=== PATIENT | male | born 1970 | race Caucasian/White ===

== ENCOUNTER 2018-01-06 21:08 | Emergency (ER) | payer OTHER ==
[~2018-01-06] VITALS: Ht 177.8 cm; Wt 91.3 kg
[~2018-01-06 21:08] MED LIST: GLIP-171 PO; NIAC500T8 PO; OXYC5TAB PO; SIMV40TA4 PO
[2018-01-06 21:10] VITALS: Ht 177.8 cm; Wt 91.3 kg
[2018-01-06] MEDS ORDERED: SODIUM CHLORIDE 0.9% 1000ML 1,000 ML IV STA (21:27)
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
[2018-01-06] MEDS ORDERED: LPT40 PO (21:46)
[2018-01-06] MEDS ORDERED: GLIM2TAB2 PO (21:46)
[2018-01-06] MEDS ORDERED: GLC/500 PO ×2 (21:46)
[2018-01-06 22:13] LABS: BASO % 0.1 %; BASO ABS # 0.01 K/uL (0-0.2); EOS % 1.2 %; EOS ABS # 0.12 K/uL (0-0.5); HEMATOCRIT 41.2 % (42-52); IG# 0.03 K/uL (0.00-0.02); LYMPH % 20.2 %; LYMPH ABS # 1.98 K/uL (1.2-3.4); MEAN CELL VOLUME 83.9 fL (80-100); MEAN CORPUSCULAR HEMOGLOBIN 30.5 pg (25-34); MEAN CORPUSCULAR HGB CONC 36.4 g/dl (32-36); MEAN PLATELET VOLUME 10.1 fL (7.4-10.4); MONO ABS # 1.08 K/uL (0.11-0.59); NEUT % 67.2 %; PLATELET COUNT 201 K/uL (130-400); RED CELL DISTRIBUTION WIDTH SD 39.3 fL (36.4-46.3); WHITE BLOOD COUNT 9.82 K/uL (4.8-10.8)
[2018-01-06 22:38] LABS: CALCIUM 8.7 mg/dl (8.5-10.1); CREATININE 1.03 mg/dl (0.60-1.40); POTASSIUM 3.4 mmol/L (3.5-5.1)
[2018-01-06 22:40] LABS: TOTAL PROTEIN 7.7 gm/dl (6.4-8.2)
[2018-01-06 22:55] VITALS: TEMP 37.4
[2018-01-06] MEDS ORDERED: OPTIRAY 320 IV PRN (23:30)
[2018-01-07] MEDS ORDERED: METRONIDAZOLE 250 MG TAB PO STA (00:23)
[2018-01-07] MEDS ORDERED: CIPROFLOXACIN 500 MG TAB PO STA (00:23)
[2018-01-07] MEDS ORDERED: METR-162 PO (00:29)
[2018-01-07] MEDS ORDERED: CIPR-255 PO (00:29)
[2018-01-07 00:42] VITALS: BP 157/103; PULSE 88; O2SAT 96
--- NOTE | 2018-01-07 08:48 | DIAGNOSTIC IMAGING REPORT ---
ABDOMEN AND PELVIS CT WITH IV AND ORAL CONTRAST CT DOSE: 486.64 mGy.cm HISTORY: Acute generalized abdominal pain ABDOMINAL PAIN/GI--?DIVERTICULITIS/mass--GIVE PO AND IV CONTRAST TECHNIQUE: Multiaxial CT images of the abdomen and pelvis were performed following the use of intravenous and oral contrast. A dose lowering technique was utilized adhering to the principles of ALARA. COMPARISON STUDY: CT abdomen and pelvis 04/14/2012. FINDINGS: Mild dependent subsegmental bibasilar atelectasis. There is no pneumatosis or pneumoperitoneum identified. Imaged inferior cardiac chambers are unremarkable. There is diffuse fatty infiltration of the liver. Lobulated lesion with peripheral nodular discontinuous enhancement involves segment 2 of the liver, image 16 series 12 measuring 4.4 x 3.7 cm, previously measuring 3.2 x 2.2 cm on study dated 04/14/2012. No additional hepatic mass lesions or intrahepatic biliary ductal dilation identified. Spleen is enlarged, 16.5 cm. Gallbladder is mildly contracted. Pancreas is unremarkable. No glands are within normal limits. Subcentimeter low attenuating lesions of the left kidney measuring up to 8 mm suggest renal cysts. Ureters, urinary bladder and prostate are unremarkable. Aorta is normal in course and caliber. No bulky adenopathy. There is suggestion of mild nonspecific wall thickening of the distal esophagus. No bowel obstruction. Postoperative changes from prior appendectomy. There is marked wall thickening of the distal ascending colon just proximal to the hepatic flexure with moderate inflammation surrounding a diverticulum on image 249 series 3. No drainable abscess or evidence of perforation. There are multiple small lymph nodes of the right lower quadrant mesentery measuring up to 4 mm. Soft tissues are unremarkable. The bones appear intact. No suspicious lytic or blastic bony lesions. IMPRESSION: 1. Marked wall thickening of the distal ascending colon just proximal to the hepatic flexure with moderate mesenteric inflammatory stranding surrounding a diverticulum suggests acute colonic diverticulitis without evidence of associated abscess or evidence of perforation. Several scattered nonenlarged lymph nodes of the right lower quadrant mesentery are likely reactive. 2. No bowel obstruction. 3. Hepatic steatosis. 4. Lobulated lesion with peripheral nodular discontinuous enhancement involves segment II of the liver measuring 4.4 x 3.7 cm, previously 3.2 x 2.2 cm on study dated 04/14/2012 suggesting a hepatic hemangioma. 5. Mild splenomegaly. 6. Prior appendectomy. Electronically signed by: Giovanni Boles M.D. 01/07/2018 8:47 AM Dictated Date/Time: 01/07/2018 8:38 AM
== END 2018-01-07 00:42 | disposition home or self-care (01) ==
LOC: C.EDB 21:09 → C.EDA 01-07 00:42
DX: K57.92 Diverticulitis of intestine, part unspecified, without perforation or abscess without bleeding (principal); R10.9 Unspecified abdominal pain; E11.9 Type 2 diabetes mellitus without complications; E78.5 Hyperlipidemia, unspecified; Z80.9 Family history of malignant neoplasm, unspecified; Z82.49 Family history of ischemic heart disease and other diseases of the circulatory system; Z79.899 Other long term (current) drug therapy; Z88.0 Allergy status to penicillin; Z88.5 Allergy status to narcotic agent